=== PATIENT | female | born 1950 | race Caucasian/White ===

== ENCOUNTER 2018-08-03 06:02 | Day surgery (SDC) | payer MEDICARE, OTHER ==
[2018-08-02 16:31] LABS: BASOPHILS % (AUTO) 0.6 % (0-1); EOSINOPHILS # (AUTO) 0.4 X10'3 (0-0.9); EOSINOPHILS % (AUTO) 5.1 % (0-6); HEMATOCRIT 42.4 % (35.0-45.0); HEMOGLOBIN 13.8 g/dl (12.0-16.0); LYMPHOCYTES # (AUTO) 1.4 X10'3 (1.1-4.8); LYMPHOCYTES % (AUTO) 20.1 % (21-51); MEAN CORPUSCULAR HEMOGLOBIN 28.6 PG (27.0-31.0); MEAN CORPUSCULAR HGB CONC 32.5 % (33.0-36.5); MEAN PLATELET VOLUME 9.1 FL (7.4-10.4); MONOCYTES # (AUTO) 0.8 X10'3 (0-0.9); NEUTROPHILS # (AUTO) 4.4 X10'3 (1.8-7.7); NEUTROPHILS % (AUTO) 63.2 % (42-75); PLATELET COUNT 257 X10'3 (140-440); RED BLOOD COUNT 4.81 X10'6 (4.20-5.60); RED CELL DISTRIBUTION WIDTH 13.8 % (11.5-14.5)
[2018-08-02 16:46] LABS: ALBUMIN 3.5 G/DL (3.4-5.0); ANION GAP 9 (8-16); BLOOD UREA NITROGEN 13 MG/DL (7-18); BUN/CREATININE RATIO 12.7 (6.6-38.0); CALCIUM 9.3 MG/DL (8.5-10.1); CHLORIDE 105 MMOL/L (99-107); CREATININE 1.02 MG/DL (0.40-0.90); GLUCOSE 78 MG/DL (70-104); POTASSIUM 3.9 MMOL/L (3.5-5.1); SODIUM 143 MMOL/L (135-145); TOTAL CARBON DIOXIDE 28.7 MMOL/L (24-32); eGFR 54 ML/MIN
[2018-08-02 17:15] LABS: PARTIAL THROMBOPLASTIN TIME 27 SECONDS (22-32); PROTHROMBIN TIME 10.4 SECONDS (9.0-12.0)
[~2018-08-03] VITALS: Ht 157.5 cm; Wt 93.1 kg
[2018-08-03] VITALS (12 sets, daily range): BP systolic 115–153; BP diastolic 46–83
[~2018-08-03 06:02] MED LIST: ASPI-1265 PO; ATOR20TA PO; CARSR60C PO; COL100C PO; ERGO500014 PO; GABA-532 PO; HYDR-3972 PO; LEVO100T PO; PROP160C2 PO; SUMA25TA35 PO; VALA100027 PO; VENL150C2 PO; VENL37.55 PO
[2018-08-03] MEDS ORDERED: MAGN400C PO (06:28)
[2018-08-03] MEDS ORDERED: ASPI81TA52 PO (06:28)
[2018-08-03] MEDS ORDERED: OMEG1CAP46 PO (06:28)
[2018-08-03] MEDS ORDERED: UBID100C16 PO (06:28)
[2018-08-03] MEDS ORDERED: LISI-600 PO (06:28)
[2018-08-03] MEDS ORDERED: normal saline 1000ml 1,000 ML IV SCH (06:30)
[2018-08-03] MEDS ORDERED: LORazepam 0.5 MG tablet PO PRN (06:30)
[2018-08-03] MEDS ORDERED: diphenhydrAMINE 25mg capsule PO PRN (06:30)
[2018-08-03] MEDS ORDERED: nitroGLYCERIN-Tridil 50MG/D5W 250 ML IV ONE (07:19)
[2018-08-03] MEDS ORDERED: midazolam 2 mg/2 ml injection ONE (07:20)
[2018-08-03] MEDS ORDERED: LIDOcaine 1% 30ml preserv. free vial ONE (07:20)
[2018-08-03] MEDS ORDERED: fentaNYL/PF 50MCG/1 ML 2ML syringe ONE (07:20)
[2018-08-03] MEDS ORDERED: iohexol 350MG/ML 100ml bottle IV ONE (07:20)
[2018-08-03] MEDS ORDERED: iohexol 350 MG/ML 50ML vial IV ONE (07:20)
[2018-08-03] MEDS ORDERED: heparin 1,000unit/ml 10ml vial 10 ML ONE (07:20)
== END 2018-08-03 15:35 | disposition home or self-care (01) ==
LOC: SSTAY O 06:02
PROVIDERS: ATTEND Internal Medicine Cardiovascular Disease
DX: I25.708 Atherosclerosis of coronary artery bypass graft(s), unspecified, with other forms of angina pectoris (principal); I10 Essential (primary) hypertension; E78.5 Hyperlipidemia, unspecified; G47.33 Obstructive sleep apnea (adult) (pediatric); E03.9 Hypothyroidism, unspecified; G43.909 Migraine, unspecified, not intractable, without status migrainosus; F32.9 Major depressive disorder, single episode, unspecified; F41.8 Other specified anxiety disorders; J45.998 Other asthma; M19.90 Unspecified osteoarthritis, unspecified site; Z72.89 Other problems related to lifestyle; Z95.1 Presence of aortocoronary bypass graft; Z98.51 Tubal ligation status; Z87.01 Personal history of pneumonia (recurrent); Z79.01 Long term (current) use of anticoagulants; Z79.891 Long term (current) use of opiate analgesic; Z79.82 Long term (current) use of aspirin; Z86.69 Personal history of other diseases of the nervous system and sense organs; Z90.89 Acquired absence of other organs; Z98.890 Other specified postprocedural states; Z88.8 Allergy status to other drugs, medicaments and biological substances; Z79.899 Other long term (current) drug therapy; Z82.49 Family history of ischemic heart disease and other diseases of the circulatory system; Z82.3 Family history of stroke
CPT/HCPCS: 36415; 80048; 85025; 85610; 85730; 93005; 93459; 99152; 99153; A6257; C1760; J1644; J2250; J3010; J3490; J7030; Q0163; Q9967; A4620; C1769

== ENCOUNTER 2020-06-23 10:29 | Emergency (ER) | payer MEDICARE, OTHER ==
[~2020-06-23] VITALS: Ht 157.5 cm; Wt 90.9 kg
[~2020-06-23 10:29] MED LIST changes: -ASPI-1265 PO; +ASPI81TA52 PO; -CARSR60C PO; -COL100C PO; -HYDR-3972 PO; +LISI-600 PO; +MAGN400C PO; +OMEG1CAP46 PO; +UBID100C16 PO; -VALA100027 PO; +VALA100031 PO
[2020-06-23 11:11] LABS: CLARITY,URINE SLIGHTLY CLOUDY (Clear); COLOR,URINE YELLOW (Yellow); GLUCOSE, URINE NEGATIVE (Neg); KETONES,URINE NEGATIVE (Neg); LEUKOCYTE ESTERASE ,URINE MODERATE (Neg); NITRITES, URINE NEGATIVE (Neg); OCCULT BLOOD,URINE LARGE (Neg); PROTEIN,URINE 30 mg/dl (Neg); UROBILINOGEN,URINE 0.2 E.U/dL (0.2-1.0)
[2020-06-23 11:14] LABS: UA COLLECTION TYPE CLN CATCH MIDSTREAM
[2020-06-23 11:22] LABS: BACTERIA,URINE 4+ /HPF (Neg); MUCUS STRANDS FEW /LPF (Neg); RBC,URINE 20-50 /HPF (0-2); SQUAMOUS EPITHELIAL CELL,UR MODERATE /LPF (FEW); WBC CLUMPS,URINE MODERATE /HPF (NEGATIVE); WBC,URINE TNTC /HPF (0-4)
[2020-06-23] MEDS ORDERED: CEPH-572 PO (11:58)
[2020-06-23 12:03] LABS: BASOPHILS % (AUTO) 0.5 % (0-1); EOSINOPHILS # (AUTO) 0.3 X10'3 (0-0.9); EOSINOPHILS % (AUTO) 3.2 % (0-6); HEMATOCRIT 40.4 % (35.0-45.0); HEMOGLOBIN 13.1 g/dl (12.0-16.0); LYMPHOCYTES # (AUTO) 1.2 X10'3 (1.1-4.8); LYMPHOCYTES % (AUTO) 13.5 % (21-51); MEAN CORPUSCULAR HEMOGLOBIN 28.9 PG (27.0-31.0); MEAN CORPUSCULAR HGB CONC 32.4 g/dL (33.0-36.5); MEAN CORPUSCULAR VOLUME 89.2 FL (78-98); MEAN PLATELET VOLUME 9.2 FL (7.4-10.4); MONOCYTES # (AUTO) 0.9 X10'3 (0-0.9); MONOCYTES % (AUTO) 10.5 % (2-12); NEUTROPHILS # (AUTO) 6.5 X10'3 (1.8-7.7); NEUTROPHILS % (AUTO) 72.3 % (42-75); PLATELET COUNT 195 X10'3 (140-440); RED BLOOD COUNT 4.53 X10'6 (4.20-5.60); RED CELL DISTRIBUTION WIDTH 14.4 % (11.5-14.5); WHITE BLOOD COUNT 8.9 X10'3 (4.5-11.0)
[2020-06-23 12:30] LABS: ALANINE AMINOTRANSFERASE 33 U/L (12-78); ALBUMIN 3.4 G/DL (3.4-5.0); ALKALINE PHOSPHATASE 70 IU/L (46-116); ANION GAP 5 (8-16); ASPARTATE AMINO TRANSFERASE 18 U/L (10-37); BILIRUBIN,TOTAL 0.3 MG/DL (0.1-1.0); BLOOD UREA NITROGEN 23 MG/DL (7-18); BUN/CREATININE RATIO 24.7 (6.6-38.0); CALCIUM 9.4 MG/DL (8.5-10.1); CHLORIDE 107 MMOL/L (99-107); CREATININE 0.93 MG/DL (0.40-0.90); GLUCOSE 108 MG/DL (70-104); POTASSIUM 4.3 MMOL/L (3.5-5.1); SODIUM 140 MMOL/L (135-145); TOTAL CARBON DIOXIDE 27.8 MMOL/L (24-32); TOTAL PROTEIN 6.9 G/DL (6.4-8.2); eGFR 59 ML/MIN
[2020-06-23 13:10] VITALS: BP 146/61
== END 2020-06-23 13:08 | disposition home or self-care (01) ==
LOC: ER 10:30
DX: N28.89 Other specified disorders of kidney and ureter (principal); R31.9 Hematuria, unspecified; E78.00 Pure hypercholesterolemia, unspecified; I10 Essential (primary) hypertension; J45.909 Unspecified asthma, uncomplicated; G89.29 Other chronic pain; F32.9 Major depressive disorder, single episode, unspecified; Z95.1 Presence of aortocoronary bypass graft; Z88.8 Allergy status to other drugs, medicaments and biological substances; Z79.82 Long term (current) use of aspirin; Z79.2 Long term (current) use of antibiotics; Z79.899 Other long term (current) drug therapy
CPT/HCPCS: 36415; 74176; 80053; 81001; 85025; 87077; 87088; 87186; 99284

== ENCOUNTER → 2021-03-07 | Emergency (ER) | payer OTHER, MEDICARE ==
[~2021-03-07] VITALS: Ht 160 cm; Wt 97.3 kg
[~2021-03-07] MED LIST changes: -LISI-600 PO; +LISI20TA28 PO
[2021-03-07 11:03] VITALS: BP 141/85
== END | disposition home or self-care (01) ==
LOC: ER 10:49
DX: S00.83XA Contusion of other part of head, initial encounter (principal); S00.03XA Contusion of scalp, initial encounter; E78.00 Pure hypercholesterolemia, unspecified; I10 Essential (primary) hypertension; J45.909 Unspecified asthma, uncomplicated; G89.29 Other chronic pain; F32.9 Major depressive disorder, single episode, unspecified; Z95.1 Presence of aortocoronary bypass graft; Z88.8 Allergy status to other drugs, medicaments and biological substances; Z79.82 Long term (current) use of aspirin; Z79.899 Other long term (current) drug therapy; V89.2XXA Person injured in unspecified motor-vehicle accident, traffic, initial encounter; Y93.89 Activity, other specified; Y92.488 Other paved roadways as the place of occurrence of the external cause; Y99.8 Other external cause status
CPT/HCPCS: 70450; 70486; 99285

== ENCOUNTER 2021-05-14 09:07 | Outpatient (CLI) | payer MEDICARE, OTHER ==
[~2021-05-14] VITALS: Ht 157.5 cm; Wt 93.9 kg
[2021-05-14 11:21] VITALS: BP 127/42
[2021-05-14] MEDS ORDERED: regadenoson 0.4mg/5ml syringe IV ONE (11:25)
[2021-05-14] MEDS ORDERED: normal saline 500ml IV soln 500 ML IV ONE (11:25)
[2021-05-14] MEDS ORDERED: nitroGLYCERIN 0.4mg SUBLingual tab SL PRN (11:25)
[2021-05-14] MEDS ORDERED: aminophylline 250mg/10ml inj. IV PRN (11:25)
[2021-05-14 11:26] VITALS: BP 133/44
[2021-05-14 11:27] VITALS: BP 124/40
[2021-05-14 11:28] VITALS: BP 121/43
[2021-05-14 11:29] VITALS: BP 127/44
[2021-05-14 11:30] VITALS: BP 119/41
== END 2021-05-14 23:59 | disposition home or self-care (01) ==
LOC: RAD 09:07
PROVIDERS: ATTEND Internal Medicine Cardiovascular Disease
DX: I36.1 Nonrheumatic tricuspid (valve) insufficiency (principal); I25.10 Atherosclerotic heart disease of native coronary artery without angina pectoris; I50.9 Heart failure, unspecified
CPT/HCPCS: 78452; 93017; 93306; A9500; J2785; J7040

== ENCOUNTER 2021-07-22 11:06 | Outpatient (CLI) | payer MEDICARE, OTHER ==
[2021-07-22] MEDS ORDERED: iohexol 300mg/ml 100ml inj. ONE (11:28)
== END 2021-07-22 23:59 | disposition home or self-care (01) ==
LOC: 64 CT 11:06
PROVIDERS: ATTEND Radiology Vascular & Interventional Radiology
DX: N28.9 Disorder of kidney and ureter, unspecified (principal); I51.7 Cardiomegaly
CPT/HCPCS: 71260; 74178; Q9967

== ENCOUNTER 2021-12-25 08:43 | Outpatient (CLI) | payer MEDICARE, OTHER ==
[2021-12-24 15:15] LABS: ALBUMIN 3.6 G/DL (3.4-5.0); ANION GAP 6 (8-16); BLOOD UREA NITROGEN 10 MG/DL (7-18); BUN/CREATININE RATIO 14.3 (6.6-38.0); CALCIUM 9.5 MG/DL (8.5-10.1); CHLORIDE 111 MMOL/L (99-107); GLUCOSE 128 MG/DL (70-104); POTASSIUM 3.5 MMOL/L (3.5-5.1); SODIUM 148 MMOL/L (135-145); TOTAL CARBON DIOXIDE 30.6 MMOL/L (24-32); eGFR 82 ML/MIN
[~2021-12-25 08:43] MED LIST changes: -VENL150C2 PO; +VENL150C4 PO
[2021-12-25] MEDS ORDERED: iohexol 300mg/ml 100ml inj. ONE (08:51)
== END 2021-12-25 23:59 | disposition home or self-care (01) ==
LOC: RAD 08:43
PROVIDERS: ATTEND Radiology Vascular & Interventional Radiology
DX: R91.1 Solitary pulmonary nodule (principal); J98.11 Atelectasis; I34.0 Nonrheumatic mitral (valve) insufficiency; M47.819 Spondylosis without myelopathy or radiculopathy, site unspecified; I70.90 Unspecified atherosclerosis; N28.89 Other specified disorders of kidney and ureter
CPT/HCPCS: 36415; 71260; 74170; 80048; Q9967

== ENCOUNTER 2022-07-08 08:46 | Outpatient (CLI) | payer MEDICARE, OTHER ==
[2022-07-08] VITALS (8 sets, daily range): BP systolic 125–150; BP diastolic 48–60
[~2022-07-08] VITALS: Ht 160 cm; Wt 97.5 kg
[2022-07-08] MEDS ORDERED: regadenoson 0.4mg/5ml syringe IV ONE (09:40)
[2022-07-08] MEDS ORDERED: nitroGLYCERIN 0.4mg SUBLingual tab SL PRN (09:40)
[2022-07-08] MEDS ORDERED: aminophylline 500mg/20ml vial IV PRN (09:40)
== END 2022-07-08 23:59 | disposition home or self-care (01) ==
LOC: RAD 08:46
PROVIDERS: ATTEND Internal Medicine Cardiovascular Disease
DX: I50.22 Chronic systolic (congestive) heart failure (principal); R42 Dizziness and giddiness; I25.89 Other forms of chronic ischemic heart disease; I51.89 Other ill-defined heart diseases
CPT/HCPCS: 78452; 93017; A9500; J0280; J2785

== ENCOUNTER 2022-08-25 09:28 | Emergency (ER) | payer MEDICARE, OTHER ==
[~2022-08-25] VITALS: Ht 158.8 cm; Wt 96.4 kg
[2022-08-25 10:47] LABS: BASOPHILS % (AUTO) 0.5 % (0-1); EOSINOPHILS % (AUTO) 0.4 % (0-6); HEMATOCRIT 40.5 % (35.0-45.0); HEMOGLOBIN 13.3 g/dl (12.0-16.0); LYMPHOCYTES # (AUTO) 0.4 X10'3 (1.1-4.8); LYMPHOCYTES % (AUTO) 6.8 % (21-51); MEAN CORPUSCULAR HEMOGLOBIN 28.5 PG (27.0-31.0); MEAN CORPUSCULAR HGB CONC 32.9 g/dL (33.0-36.5); MEAN CORPUSCULAR VOLUME 86.7 FL (78-98); MEAN PLATELET VOLUME 8.4 FL (7.4-10.4); MONOCYTES # (AUTO) 0.8 X10'3 (0-0.9); MONOCYTES % (AUTO) 11.5 % (2-12); NEUTROPHILS # (AUTO) 5.3 X10'3 (1.8-7.7); NEUTROPHILS % (AUTO) 80.8 % (42-75); PLATELET COUNT 151 X10'3 (140-440); RED BLOOD COUNT 4.68 X10'6 (4.20-5.60); RED CELL DISTRIBUTION WIDTH 13.9 % (11.5-14.5); WHITE BLOOD COUNT 6.6 X10'3 (4.5-11.0)
[2022-08-25 10:58] LABS: ALANINE AMINOTRANSFERASE 27 U/L (12-78); ALBUMIN 3.7 G/DL (3.4-5.0); ALBUMIN/GLOBULIN RATIO 0.9 (1.1-1.5); ALKALINE PHOSPHATASE 77 IU/L (46-116); ANION GAP 7 (8-16); ASPARTATE AMINO TRANSFERASE 26 U/L (10-37); BILIRUBIN,TOTAL 0.5 MG/DL (0.1-1.0); BLOOD UREA NITROGEN 10 MG/DL (7-18); BUN/CREATININE RATIO 11.4 (6.6-38.0); CALCIUM 9.3 MG/DL (8.5-10.1); CHLORIDE 102 MMOL/L (99-107); CREATININE 0.88 MG/DL (0.40-0.90); GLUCOSE 138 MG/DL (70-104); POTASSIUM 3.8 MMOL/L (3.5-5.1); SODIUM 136 MMOL/L (135-145); TOTAL CARBON DIOXIDE 26.9 MMOL/L (24-32); TOTAL PROTEIN 7.6 G/DL (6.4-8.2); eGFR 63 ML/MIN
[2022-08-25 12:34] VITALS: BP 174/70
--- NOTE | 2022-08-25 12:45 | NUR ---
I agree with eduardo TONY's general assessment.
[2022-08-25] MEDS ORDERED: ipratropium/albuterol 3ml nebule NEB ONE (14:20)
[2022-08-25] MEDS ORDERED: AMOX-117 PO (14:23)
[2022-08-25] MEDS ORDERED: PRED20TA PO (14:23)
[2022-08-25] MEDS ORDERED: ALBU6.7H14 INH (14:23)
--- NOTE | 2022-08-25 15:22 | NUR ---
RT AT BS
== END 2022-08-25 15:52 | disposition home or self-care (01) ==
LOC: ER 09:28
DX: J40 Bronchitis, not specified as acute or chronic (principal); Z20.822 Contact with and (suspected) exposure to COVID-19
CPT/HCPCS: 36415; 71045; 80053; 83880; 84484; 85025; 87635; 93005; 94640; 99285; C9803; 94760

== ENCOUNTER 2023-01-05 10:58 | Outpatient (CLI) | payer MEDICARE, OTHER ==
[~2023-01-05 10:58] MED LIST changes: +ALBU6.7H14 INH; +iohexol 300mg/ml 100ml inj. ONE
== END 2023-01-05 23:59 | disposition home or self-care (01) ==
LOC: RAD 10:58
PROVIDERS: ATTEND Radiology Vascular & Interventional Radiology
DX: N28.89 Other specified disorders of kidney and ureter (principal); R91.1 Solitary pulmonary nodule; I51.7 Cardiomegaly; I70.0 Atherosclerosis of aorta
CPT/HCPCS: 71270; 74178; J3490; Q9967

== ENCOUNTER 2025-05-01 05:55 | Day surgery (SDC) | payer MEDICARE, OTHER ==
[2025-04-30 11:25] LABS: MEAN PLATELET VOLUME 8.2 FL (7.4-10.4); RED CELL DISTRIBUTION WIDTH 14.4 % (11.5-14.5)
[2025-04-30 12:03] LABS: CREATININE 0.78 MG/DL (0.40-0.90); TOTAL CARBON DIOXIDE 27.3 MMOL/L (24-32); eGFR 72 ML/MIN
[2025-04-30 12:06] LABS: APTT 26 SECONDS (22-32); INR 1.0 INR
[~2025-05-01] VITALS: Ht 157.5 cm; Wt 99.7 kg
[2025-05-01] VITALS (12 sets, daily range): BP systolic 118–157; BP diastolic 53–68; PULSE 55–64; RESP 10–16; TEMP 98.7; O2SAT 91–96
[~2025-05-01 05:55] MED LIST changes: -VENL150C4 PO; +VENL150C5 PO; -VENL37.55 PO; +VENL37.58 PO; -iohexol 300mg/ml 100ml inj. ONE
[2025-05-01] MEDS ORDERED: ceFAZolin 2gm/dext,iso 50mL 50 ML IV ONE (06:27)
[2025-05-01] MEDS ORDERED: INDLA60C PO (06:29)
[2025-05-01] MEDS ORDERED: GABA300T28 PO (06:29)
[2025-05-01] MEDS ORDERED: LEVO137T2 PO (06:30)
[2025-05-01] MEDS ORDERED: EZET10TA48 PO (06:31)
[2025-05-01] MEDS ORDERED: ROSU40TA89 PO (06:32)
--- NOTE | 2025-05-01 06:32 | ELECTROCARDIOGRAPH REPORT ---
[facility] Test Date: 2025-05-01 Test Time: 06:31:11 Pat Name: JOSE LUIS ALCALA Department: [facility] Patient ID: [facility]-[id number] Room: Gender: F Gravel Wheeler: LOLY : 1950 Requested By: LIAT BERNAL Order Number: [id number] Reading MD: Dr. MANE Bernal Measurements Intervals [place] Rate: 52 P: 40 CT: 252 QRS: 35 QRSD: 100 T: 58 QT: 428 QTc: 398 Interpretive Statements Sinus rhythm Prolonged CT interval Electronically Signed On 05-01-2025 17:32:[address] MANE Bernal Please click the below link to view image of tracing.
[2025-05-01] MEDS ORDERED: ISOS60TA71 PO (06:33)
[2025-05-01] MEDS ORDERED: OLME20TA69 PO (06:34)
[2025-05-01] MEDS ORDERED: SUMA50TA17 PO (06:38)
[2025-05-01] MEDS ORDERED: midazolam 1 mg/ML 2ml injection ONE (07:32)
[2025-05-01] MEDS ORDERED: LIDOcaine 1% W/epiNEPHrine 1:100,000 20ml vial ONE (07:32)
[2025-05-01] MEDS ORDERED: fentaNYL/PF 50MCG/1 ML 2ML syringe ONE (07:33)
[2025-05-01] MEDS ORDERED: HYDROcodone/acetaminophen 5mg/325mg tablet PO PRN (10:05)
[2025-05-01] MEDS ORDERED: HYDROcodone/acetaminophen 10/325mg tab PO PRN (10:05)
[2025-05-01] MEDS ORDERED: CEPH-585 PO (10:06)
[2025-05-01] MEDS: normal saline 1000ml 1,000 ML IV SCH (11:21)
[2025-05-01] MEDS: vancomycin/NS 1 GM ADD-VANTAGE 250 ML X 1 DOSE IV ONE (11:22)
--- NOTE | 2025-05-01 11:58 | RADIOLOGY REPORT ---
EXAM: DI CHEST,TWO VIEWS CLINICAL HISTORY: S/P PACEMAKER COMPARISON: CT CHEST ABDOMEN PELVIS on DOS: 01/05/23, CHEST,SINGLE VIEW on DOS: 08/25/22, CT CHEST ABDO MEN PELVIS on DOS: 12/25/21, CT CHEST ABDOMEN PELVIS on DOS: 07/22/21 TECHNIQUE: Frontal and lateral view of the chest was obtained FINDINGS: Lines and Tubes: Cardiac pacemaker projects over left chest wall. Lungs: No focal consolidation. Pulmonary vascular congestion. Pleura: No effusion. No pneumothorax. Cardiomediastinal contours:Cardiomegaly. Bones: No acute osseous abnormality. IMPRESSION: Cardiomegaly with pulmonary vascular congestion.
[2025-05-02] MEDS ORDERED: normal saline 1000ml 1,000 ML IV SCH (05:30)
--- NOTE | 2025-05-03 08:46 | CARDIOLOGY REPORT ---
DATE OF SERVICE: 05/01/2025 DICTATING PHYSICIAN: MANE Gill MD PERMANENT PACEMAKER IMPLANTATION REPORT GENDER: Female. AGE: 75 years. HEIGHT: 157 cm. WEIGHT: 100 kg. BODY SURFACE AREA: 1.99 m2. INDICATIONS: The patient is a 75-year-old postmenopausal female with hypertension, hyperlipidemia, sleep apnea, symptomatic tachycardia episodes, CAD status post CABG. The patient had CABG x 3 back in 08/[address] Still. The patient has been having symptomatic bradycardia for some time and the patient had monitor on 04/02/2025, which showed lowest heart of 45 and she also has episodes of SVT. The patient was managed medically conservatively, but she has been having increasing episodes of tiredness, fatigue, dizziness and prefers to to proceed with permanent pacemaker implantation. Risks, benefits, and alternative options discussed. Informed consent obtained. PREPROCEDURE DIAGNOSIS: Sick sinus syndrome with tachy danica episodes. POSTPROCEDURE DIAGNOSIS: Sick sinus syndrome with tachy danica episode. PROCEDURE DONE: 1. Fluroscopy. 2. Dual chamber pacemaker implantation. 3. Conscious sedation time of 75 minutes. Procedure done as mentioned above. COMPLICATIONS: None. BLOOD LOSS: Less than 5 mL. SURGEON: MANE Gill MD, [facility] DESCRIPTION OF PROCEDURE: Left infraclavicular area was prepped and draped in the usual fashion. Two separate micropuncture accesses were obtained in the left subclavian vein. Two micropuncture wires were replaced with 2 J-wires. A horizontal incision placed in the left infraclavicular area. Using blunt dissection and electrocautery, subcutaneous pacemaker pocket was fashioned. External ends of the J-wires were retrieved into the pacemaker pocket. Two 7-Austrian sheaths were advanced over J-wires. Through one of them, RV lead was advanced to the RV apex, screwed into the RV apex. Appropriate pacing and sensing thresholds were obtained. Sheath removed by a peel-away technique. Through the second, a 7-Austrian sheath, the right atrial lead was advanced to the right atrium, screwed into the right atrial appendage. Appropriate pacing and sensing thresholds obtained. Sheath removed in peel-away technique and lead anchored to the subcutaneous tissue with Ethibond. Leads connected to appropriate sockets of the pulse generator. Set screws were tightened. Tug test performed and the pocket was irrigated with copious antibiotic solution. The pacemaker was suspended into the pacemaker pocket. The pocket was closed with continuous 0 Vicryl followed by interrupted 0 Vicryl, second layer of interrupted 2-0 Vicryl applied. Skin approximated with eliane. Pressure dressing applied. The patient tolerated the procedure with no complications. TECHNICAL INFORMATION: Device used Medtronic MRI compatible Ana pacemaker, model #W3DR01, serial #[id number], Medtronic, 05/01/2025, left pectoral location. RIGHT ATRIAL LEAD: Model #4076, 52 cm long, serial #[id number], [employer]tronic, 05/01/2025, right atrial appendage, P-wave amplitude 1 millivolt, pacing impedance of, pacing threshold 0.75 volts at 0.4 milliseconds. RV LEAD: Model #5076, 58 cm long, serial #[id number], [employer]tronic, 05/01/2025, R-wave amplitude of 8.3 millivolts, impedance of 530 ohms and pacing threshold of 0.75 at 1 millisecond. IMPRESSION: A 75-year-old postmenopausal female with sick sinus syndrome and symptomatic tachycardia, underwent successful AV sequential of pacemaker implantation. No complications. MANE Gill MD TID: [id number] RECEIPT: [id number] REGLA/JERONIMO/CRUZITO DAO
== END 2025-05-01 14:00 | disposition home or self-care (01) ==
LOC: SSTAY O 05:55
PROVIDERS: ATTEND Internal Medicine Cardiovascular Disease
DX: I49.5 Sick sinus syndrome (principal); I25.10 Atherosclerotic heart disease of native coronary artery without angina pectoris; I11.0 Hypertensive heart disease with heart failure; I50.30 Unspecified diastolic (congestive) heart failure; E78.5 Hyperlipidemia, unspecified; E03.9 Hypothyroidism, unspecified; G47.33 Obstructive sleep apnea (adult) (pediatric); F41.9 Anxiety disorder, unspecified; F32.A Depression, unspecified; M19.90 Unspecified osteoarthritis, unspecified site; Z79.82 Long term (current) use of aspirin; Z79.890 Hormone replacement therapy; Z79.899 Other long term (current) drug therapy; Z90.710 Acquired absence of both cervix and uterus; Z90.89 Acquired absence of other organs; Z95.1 Presence of aortocoronary bypass graft; Z98.51 Tubal ligation status; Z88.8 Allergy status to other drugs, medicaments and biological substances; Z82.49 Family history of ischemic heart disease and other diseases of the circulatory system; Z82.3 Family history of stroke
CPT/HCPCS: 33208; 36415; 71046; 80048; 85025; 85610; 85730; 93005; 99152; 99153; A4565; C1785; C1898; J0690; J1171; J1200; J2250; J3010; J3373; J3490; J7030; Z7610